=== PATIENT | female | born 1990 | race Caucasian/White ===

== ENCOUNTER → 2020-02-04 | Outpatient (CLI) | payer OTHER | LOC: MHCPAIN 10:53 | DX: G57.01 Lesion of sciatic nerve, right lower limb (principal); G89.29 Other chronic pain; M25.551 Pain in right hip | CPT/HCPCS: G0463 ==

== ENCOUNTER → 2020-02-25 | Outpatient (CLI) | payer OTHER | LOC: MHCPAIN 09:16 | DX: M79.18 Myalgia, other site (principal); M54.5 Low back pain; M53.3 Sacrococcygeal disorders, not elsewhere classified | CPT/HCPCS: J1040 ==

== ENCOUNTER → 2020-04-01 | Outpatient (CLI) | payer OTHER | LOC: MHCPAIN 08:19 | DX: M53.3 Sacrococcygeal disorders, not elsewhere classified (principal); M54.16 Radiculopathy, lumbar region; G89.29 Other chronic pain; G57.01 Lesion of sciatic nerve, right lower limb | CPT/HCPCS: G0463 ==